=== PATIENT | female | born 1965 | race Caucasian/White ===

== ENCOUNTER 2017-01-15 06:48 | Day surgery (SDC) | payer OTHER ==
[2017-01-03 10:10] VITALS: BMI 37.1
[2017-01-15] MEDS ORDERED: Bupivacaine HCl 0.5%/Epinephrine 1:200,000/PF 30 ml Vial ONE (09:16)
[2017-01-15] MEDS ORDERED: Fentanyl 100 MCG/2 ML VIAL ONE ×2 (09:28→11:32)
[2017-01-15] MEDS ORDERED: Propofol 200 MG/20 ML VIAL ONE (09:46)
[2017-01-15] MEDS ORDERED: Glycopyrrolate 0.2 MG/ML 5 ML SYRINGE ONE (09:46)
--- NOTE | 2017-01-15 10:57 | OP ---
DATE OF PROCEDURE: 01/15/2017 SURGEON: Shahram You M.D. STEAM HAMMER OPERATOR: Aguilar Elena PROCEDURE: Removal of dorsal column stimulator, removal electrode array. PROCEDURE IN DETAIL: The patient was brought into the operating room, intubated. He was rolled in the prone position on gel-filled chest rolls. The previous incisions over the battery pack and the lead anchors were reopened. The battery was removed without difficulty. The lead anchors were full y exposed and then all leads and hardware were removed without difficulty. The wound was extensivel y irrigated, immaculate hemostasis was secured. Vancomycin powder was applied and the wounds were c losed in anatomic layers.
[2017-01-15] MEDS ORDERED: Ketorolac Tromethamine 30 MG/ML VIAL ONE (11:17)
== END 2017-01-15 13:30 | disposition home or self-care (01) ==
LOC: SDC 06:48
PROVIDERS: ATTEND Neurological Surgery
PROC: 0JPT0MZ Removal of Stimulator Generator from Trunk Subcutaneous Tissue and Fascia, Open Approach (ICD-10-PCS; principal; 2017-01-15)
PROC: 00PU3MZ Removal of Neurostimulator Lead from Spinal Canal, Percutaneous Approach (ICD-10-PCS; principal; 2017-01-15)
DX: M54.16 Radiculopathy, lumbar region (principal); M19.90 Unspecified osteoarthritis, unspecified site; E66.9 Obesity, unspecified; F17.210 Nicotine dependence, cigarettes, uncomplicated; F32.9 Major depressive disorder, single episode, unspecified; Z68.37 Body mass index [BMI] 37.0-37.9, adult; Z79.891 Long term (current) use of opiate analgesic; Z79.899 Other long term (current) drug therapy; Z98.890 Other specified postprocedural states
CPT/HCPCS: 76001; 96374; J0670; J1885; J2704; J3010; J3370

== ENCOUNTER 2017-02-06 14:05 | Outpatient (CLI) | payer OTHER ==
--- NOTE | 2017-02-06 18:32 | MRI ---
MRI LUMBAR SPINE WITHOUT CONTRAST: 02/06/17 Multiplanar and multisequential imaging lumbar spine obtained. HISTORY: Lumbar radiculopathy. Low back pain. History of lumbar fusion with hardware removal. Spinal cord sti mulator removed approximately six weeks ago. FINDINGS: Lumbar vertebrae maintain height. Loss of disc spaces at all levels. L5 appears transitional but claritza l be designated as L5 on this study. At T12-L1, no significant disc bulge. Mild facet arthrosis. At L1-2, mild disc bulge with facet arthrosis without central canal or foraminal stenosis. There is a fluid signal collection seen in the subcutaneous tissues in the midline posteriorly at T1 2-L1, which measures approximately 3 cm in AP dimension x up to 4 cm craniocaudal dimension in sagit mary plane. Seroma, hematoma, or subcutaneous abscess collection are considerations. At L2-3, mild disc bulge flattens the thecal sac. Prominent facet arthrosis. Mild central canal sten osis. Bilateral foraminal narrowing due to disc bulge and hypertrophic change. At L3-4, there is a broad based disc protrusion flattening thecal sac. Facet hypertrophy is prominen t. Moderate central canal stenosis. Bilateral foraminal stenosis. At L4-5, postoperative changes posteriorly. No residual or recurrent disc. No central canal or leyla inal stenosis. At L5-S1, postoperative changes. No residual or recurrent disc. No central canal or foraminal stenos is. IMPRESSION: 1. Fluid signal collection in the subcutaneous tissues posterior to the spinous process at T12- L1 with dimensions given above. Dr. Tierney's nurse is paged for notification of this finding. 2. Disc bulge and central canal stenosis at L1-2, L2-3, and L3-4 as described above. 3. Postoperative changes at L4-5 and L5-S1 as described. POS: [facility]
== END 2017-02-06 14:06 | disposition home or self-care (01) ==
LOC: TBSIIMAG 14:05
PROVIDERS: ATTEND Neurological Surgery
DX: M51.16 Intervertebral disc disorders with radiculopathy, lumbar region (principal); Z98.1 Arthrodesis status
CPT/HCPCS: 72148

== ENCOUNTER 2017-07-23 10:55 | Outpatient (CLI) | payer OTHER ==
[2017-07-23 12:35] LABS: Hemoglobin 13.3 g/dL (12.0-16.0); Mean Corpuscular HGB CONC 32.8 g/dL (32.0-36.0); Mean Corpuscular Hemoglobin 32.6 pg (27.0-31.0); Mean Corpuscular Volume 99.5 fl (81.0-99.0); Platelet Count 185 thou/uL (130-400); RBC Distribution Width 12.8 % (11.5-14.5); Red Blood Cell (RBC) Count 4.09 mill/uL (4.20-5.40); White Blood Cell (WBC) Count 7.9 thou/uL (4.8-10.8)
[2017-07-23 12:49] LABS: Anion Gap 10 mmol/L (10-20); BUN (Urea Nitrogen) 17 mg/dL (9.8-20.1); Calc. Creatinine Clearance 0 mL/min (70-130); Calcium 9.8 mg/dL (7.8-10.44); Carbon Dioxide 28 mmol/L (22-29); Chloride 103 mmol/L (98-107); Estimated GFR-MDRD 82; Glucose 84 mg/dL (70-105); Potassium 3.9 mmol/L (3.5-5.1); Sodium 137 mmol/L (136-145)
--- NOTE | 2017-07-23 22:11 | EKG ---
Test Reason : Blood Pressure : / mmHG Vent. Rate : 063 BPM Atrial Rate : 063 BPM P-R Int : 162 ms QRS Dur : 074 ms QT Int : 440 ms P-R-T Axes : 066 069 031 degrees QTc Int : 450 ms Normal sinus rhythm with sinus arrhythmia Normal ECG When compared with ECG of 03-JAN-2017 10:49, No significant change was found Confirmed by SHONA GONZALEZ M.D. ([id number]) on 07/23/2017 10:10:46 PM Referred By: MARLEEN Confirmed By:SHONA GONZALEZ M.D.
== END 2017-07-23 10:56 | disposition home or self-care (01) ==
LOC: LABBT 10:55
PROVIDERS: ATTEND Neurological Surgery
DX: Z01.818 Encounter for other preprocedural examination (principal); M54.16 Radiculopathy, lumbar region
CPT/HCPCS: 80048; 85027; 93005; 93010

== ENCOUNTER 2017-07-30 06:14 | Inpatient (IN) | payer OTHER ==
[2017-07-23 11:10] VITALS: BMI 37.4
[2017-07-30] MEDS ORDERED: CEFAZOLIN/Water 2 GM/20 ML SYRINGE ONE (06:24)
[2017-07-30] MEDS ORDERED: Sodium Chloride 0.9% 10 ML ONE (06:24)
[2017-07-30] MEDS ORDERED: Fentanyl 100 MCG/2 ML VIAL ONE ×4 (06:26→09:57)
[2017-07-30] MEDS ORDERED: Midazolam HCl 2 mg/2 ml Vial ONE (06:26)
[2017-07-30] MEDS ORDERED: HYDROmorphone 0.5 MG/0.5 ML SYRINGE ONE (06:27)
[2017-07-30] MEDS ORDERED: Ondansetron HCl/PF 4 MG/2 ML Vial IVP PRN (09:14)
[2017-07-30] MEDS ORDERED: Promethazine HCl 25 MG/ML VIAL IM PRN ×2 (09:14→09:22)
[2017-07-30] MEDS ORDERED: Promethazine HCl 25 MG/ML VIAL SLOW IVP PRN (09:14)
[2017-07-30] MEDS ORDERED: Mag-Al 1200 mg/1200 mg/30 ML UDCUP PO PRN (09:22)
[2017-07-30] MEDS ORDERED: Promethazine 25 MG TAB PO PRN (09:22)
[2017-07-30] MEDS ORDERED: Milk Of Magnesia 30 ML UDCUP PO PRN (09:22)
[2017-07-30] MEDS ORDERED: diphenhydrAMINE 50 MG/ML VIAL IVP PRN (09:22)
[2017-07-30] MEDS ORDERED: HYDROcodone/Acetaminophen 10/325 mg Tablet PO PRN (09:22)
[2017-07-30] MEDS ORDERED: diphenhydrAMINE 25 MG CAP PO PRN (09:22)
[2017-07-30] MEDS ORDERED: Promethazine HCl 12.5 MG SUPP PR PRN (09:22)
[2017-07-30] MEDS ORDERED: Ondansetron HCl/PF 4 MG/2 ML Vial IM PRN (09:22)
[2017-07-30] MEDS ORDERED: Morphine 4 MG/ML VIAL IV PRN (09:24)
--- NOTE | 2017-07-30 09:53 | OP ---
DATE OF PROCEDURE: 07/30/2017 SURGEON: Shahram You M.D. NEEDLE LOOM OPERATOR: Kings Ro PA-C PROCEDURE: L2-L4 laminectomy, posterolateral arthrodesis L2-L4, demineralized bone matrix, local mor selized autograft, BMP. PROCEDURE IN DETAIL: The patient was brought to the operating room and intubated. She was rolled in prone position on gel-filled chest rolls. An incision made exposing L2 through L4 and our level was confirmed by x-ray. We performed complete L3 and inferior L2 and superior L4 laminectomies. At the inferior aspect of the remainder of the L4 lamina, CSF was emanating through scar tissue. A Gelfoam pledget was placed in this region and the CSF stopped. A complete decompression L2-3, L3-4 was achi eved. We next began to place pedicle screws at right L2 and it was extremely difficult given the sma ll pedicle and a scoliotic deformity. Ultimately, I felt that further efforts at placing the pedicle screws would not be fruitful. The posterolateral surfaces were decorticated for the purpose of arth rodesis and a combination of demineralized bone matrix, local morselized autograft, and BMP and a Gel foam pledget was laid over the posterolateral surfaces bilaterally for the purpose of arthrodesis. V ancomycin powder was applied. Immaculate hemostasis was secured. The wound was then closed in anato mariam layers.
[2017-07-30] MEDS ORDERED: Nicotine 21 MG PATCH TOP SCH ×2 (10:00→22:00)
[2017-07-30] MEDS: Ketorolac Tromethamine 30 MG/ML VIAL IVP SCH ×2 (13:58→22:50)
[2017-07-30] MEDS: Sodium Chloride 0.9% 1,000 ML IV SCH (14:00)
[2017-07-30] MEDS: CEFAZOLIN/Water 2 GM/20 ML SYRINGE SLOW IVP SCH (14:05)
[2017-07-30] MEDS ORDERED: Dexamethasone 20 MG/5 ML VIAL ONE (16:35)
[2017-07-30] MEDS ORDERED: PROPOFOL 200 MG/20 ML VIAL ONE (16:35)
[2017-07-30] MEDS ORDERED: Glycopyrrolate 0.2 MG/ML 5 ML SYRINGE ONE (16:35)
[2017-07-30] MEDS ORDERED: Lidocaine 1% PF 5 ML VIAL ONE (16:35)
[2017-07-30] MEDS ORDERED: ePHEDrine/0.9% NaCl/PF SYRINGE 50 mg/10 ml ONE (16:35)
[2017-07-30] MEDS ORDERED: PHENYLEPHRINE-NS 100 MCG/ML 10 ML SYRINGE ONE (16:35)
[2017-07-30] MEDS ORDERED: Ondansetron HCl/PF 4 MG/2 ML Vial ONE (16:35)
[2017-07-30] MEDS: HYDROcodone/Acetaminophen 10/325 mg Tablet PO PRN ×2 (16:53→21:10)
[2017-07-30] MEDS: tiZANidine HCl 4 MG TAB PO PRN (21:10)
[2017-07-31] MEDS: Sodium Chloride 0.9% 1,000 ML IV SCH (01:50)
[2017-07-31] MEDS: CEFAZOLIN/Water 2 GM/20 ML SYRINGE SLOW IVP SCH (01:50)
[2017-07-31] MEDS: Ketorolac Tromethamine 30 MG/ML VIAL IVP SCH ×2 (02:06→04:52)
[2017-07-31] MEDS: Morphine 4 MG/ML VIAL IV PRN ×3 (02:10→04:52)
[2017-07-31] MEDS: HYDROcodone/Acetaminophen 10/325 mg Tablet PO PRN (03:12)
[2017-07-31] MEDS ORDERED: oxyCODONE/Acetaminophen 5 mg/325 mg Tablet PO PRN (08:35)
[2017-07-31] MEDS ORDERED: Furosemide 40 MG TAB PO SCH (08:45)
[2017-07-31] MEDS: tiZANidine HCl 4 MG TAB PO PRN (08:57)
[2017-07-31] MEDS ORDERED: Potassium Chloride 10 MEQ TAB PO SCH (09:00)
[2017-07-31] MEDS ORDERED: oxyCODONE ER 20 MG TAB PO SCH (09:00)
[2017-07-31] MEDS ORDERED: DULoxetine 60 MG CAP PO SCH (09:00)
[2017-07-31 13:13] VITALS: BP 91/59; TEMP 99.3
[2017-07-31] MEDS ORDERED: Atorvastatin Calcium 20 MG TAB PO SCH (21:00)
== END 2017-07-31 13:31 | disposition home or self-care (01) | DRG 460 ==
LOC: SURG A 06:14 → SURG B 10:05 → EDSTATUS 11:01
PROVIDERS: ADMIT Neurological Surgery; ATTEND Neurological Surgery
PROC: 0SG1071 Fusion of 2 or more Lumbar Vertebral Joints with Autologous Tissue Substitute, Posterior Approach, Posterior Column, Open Approach (ICD-10-PCS; principal; 2017-07-30)
PROC: 00NY0ZZ Release Lumbar Spinal Cord, Open Approach (ICD-10-PCS; 2017-07-30)
PROC: 0ST20ZZ Resection of Lumbar Vertebral Disc, Open Approach (ICD-10-PCS; 2017-07-30)
DX: M54.16 Radiculopathy, lumbar region (principal); Z88.5 Allergy status to narcotic agent
CPT/HCPCS: 76000; 76001; A4216; C1768; G8978-GP-CK; G8979-GP-CI; J1100; J1170; J1885; J2001; J2250; J2270; J2405; J2704; J3010; J3370; J3490

== ENCOUNTER 2017-08-14 10:45 | Outpatient (CLI) | payer OTHER ==
--- NOTE | 2017-08-14 11:44 | RAD ---
LUMBAR SPINE TWO VIEWS: History: 52-year-old female with history of lumbar radiculopathy with low back pain and bilateral leg pain. Hi story of fusion with hardware removal and spinal cord stimulator removal approximately 6 weeks ago. FINDINGS: Recent post underlying surgical yasemin. Severe levoscoliosis. Laminectomy changes at L5 and L4 up to L3. Approximately 0.9 cm anterolisthesis of L3 on L4. This appears new when compared to the prior MR I of 02-06-17. IMPRESSION: Large levoscoliosis. Post-operative laminectomy changes at L5-S1 and L4-5 and L3-4 with approximately 0.9 cm anterolisthesis of L3 on L4. POS: [facility]
== END 2017-08-14 10:46 | disposition home or self-care (01) ==
LOC: TBSIIMAG 10:45
PROVIDERS: ATTEND Neurological Surgery
DX: M54.5 Low back pain (principal); M41.9 Scoliosis, unspecified; M43.16 Spondylolisthesis, lumbar region; Z98.1 Arthrodesis status
CPT/HCPCS: 72100

== ENCOUNTER 2017-10-16 15:11 | Outpatient (CLI) | payer OTHER ==
--- NOTE | 2017-10-16 16:31 | RAD ---
LUMBAR SPINE TWO VIEWS 10/16/17 COMPARISON: 08/14/17 HISTORY: Re-evaluate lumbar spine following surgery, low back pain. FINDINGS: There is prominent levorotoscoliosis of the lumbar spine. The lateral examination demonstrates eviden ce of an intervertebral disc device at L4-5 and L5-S1, stable. Curvilinear metallic structures overli e the anterior aspect of L4 and L5 on lateral imaging suggesting fusion hardware. There is anterolist hesis of L3 on L4 measuring approximately 1 cm, similar when compared to prior imaging. There is mult ilevel disc space narrowing, including L1-2, L2-3, L3-4, L4-5 and L5-S1. Multilevel bilateral laminec zuly changes are noted at L2 through L5. No acute osseous abnormality is seen. IMPRESSION: Stable postoperative and degenerative changes of the lumbar spine as described above. POS: [facility]
== END 2017-10-16 15:12 | disposition home or self-care (01) ==
LOC: TBSIIMAG 15:11
PROVIDERS: ATTEND Neurological Surgery
DX: M48.061 Spinal stenosis, lumbar region without neurogenic claudication (principal); M47.896 Other spondylosis, lumbar region; Z98.890 Other specified postprocedural states
CPT/HCPCS: 72100